=== PATIENT | male | born 1995 | race Caucasian/White ===

== ENCOUNTER 2020-08-23 08:32 | Outpatient (CLI) | payer OTHER | END 2020-08-23 23:59 | disposition home or self-care (01) | LOC: RAD 08:32 | PROVIDERS: ATTEND Family Medicine | DX: R56.9 Unspecified convulsions (principal) | CPT/HCPCS: 95816 ==

== ENCOUNTER 2025-04-20 10:08 | Outpatient (CLI) | payer OTHER ==
[2025-04-20] VITALS (21 sets, daily range): BP systolic 125–167; BP diastolic 76–100; PULSE 62–86
== END 2025-04-20 23:59 | disposition home or self-care (01) ==
LOC: CARD DIAG 10:08
PROVIDERS: ATTEND Internal Medicine Interventional Cardiology
DX: R42 Dizziness and giddiness (principal); R55 Syncope and collapse
CPT/HCPCS: 93660